=== PATIENT | female | born 1975 | race African-American/Black ===

== ENCOUNTER 2021-07-20 20:48 | Inpatient (IN) ==
[2021-07-20] MEDS ORDERED: Isovue-370 500 ML BOTTLE IVP ONE (21:33)
[2021-07-20 21:51] LABS: Basophils # 0.1 K/mcL (0.0-0.2); Basophils % 0.5 %; Eosinophils # 0.7 K/mcL (0.0-0.6); Eosinophils % 3.9 %; Hematocrit 38.7 % (35.3-44.9); Hemoglobin 12.6 g/dL (11.5-15.4); Lymphocytes # 2.5 K/mcL (0.6-4.6); Lymphocytes % 13.6 %; Mean Corpuscular HGB Conc 32.6 g/dL (31.6-35.5); Mean Corpuscular Hemoglobin 28.4 pg (28.0-33.3); Mean Corpuscular Volume 87.2 fL (83.0-100.0); Mean Platelet Volume 9.8 fL (9.4-12.4); Monocytes # 1.5 K/mcL (0.0-1.3); Neutrophils # 13.4 K/mcL (1.6-8.9); Platelet Count 341 K/mcL (140-400); Red Blood Count 4.44 M/mcL (3.82-4.97); Red Cell Distribution Width 13.3 % (11.5-14.5); White Blood Count 18.4 K/mcL (4.3-11.1)
[2021-07-20] MEDS ORDERED: Vancomycin 2,000 MG/520 ML IV.SOLN IVPB ONE (22:06)
[2021-07-20] MEDS ORDERED: Clindamycin 600 MG/50 ML 600 MG/50 ML IV.SOLN IVPB STA (22:07)
[2021-07-20] MEDS ORDERED: Piperacillin/Tazobactam 3.375 GM in 0.9 % Sodium Chloride Mini Bag 100 ML IVPB ONE (22:07)
[2021-07-20 22:22] LABS: INR 1.4; Prothrombin Time 15.8 Seconds (9.4-12.1)
[2021-07-20 22:25] LABS: Activated Partial Thrombo Time 31.7 Seconds (26.0-36.0)
[2021-07-20 22:29] LABS: BUN/Creatinine Ratio 15 (6-26); Blood Urea Nitrogen 10 mg/dL (6-20); Calcium 8.8 mg/dL (8.6-10.3); Carbon Dioxide 28 mEq/L (23-29); Chloride 102 mEq/L (98-107); Glucose 149 mg/dL (70-105); Osmolality,Calculated 286 (280-300); Potassium 3.5 mEq/L (3.5-5.1); Sodium 137 mEq/L (136-145); eGFR For African Americans > 60 (> 60); eGFR For Non-African Americans > 60 (> 60)
[2021-07-20] MEDS ORDERED: *HR* HYDROmorphone (PF) 1 MG/ML SYRINGE IVP ONE (22:32)
[2021-07-20 22:33] LABS: Alanine Aminotransferase 7 Units/L (7-52); Albumin 3.1 g/dL (3.5-5.7); Albumin/Globulin Ratio 0.8 (1.1-2.2); Alkaline Phosphatase 67 Units/L (34-104); Aspartate Amino Transferase 8 Units/L (13-39); Bilirubin,Direct 0.1 mg/dL (0.0-0.2); Bilirubin,Indirect 0.5 mg/dL (0.0-1.0); Bilirubin,Total 0.6 mg/dL (0.3-1.0); Globulin 3.8 g/dL (2.4-3.5); Total Protein 6.9 g/dL (6.4-8.9)
[2021-07-20] MEDS ORDERED: Acetaminophen IV 1,000 MG/100 ML BAG IVPB ONE (23:59)
[2021-07-20] MEDS ORDERED: Famotidine 20 MG/2 ML VIAL IVP ONE (23:59)
[2021-07-21] MEDS ORDERED: *HR* HYDROmorphone (PF) 1 MG/ML SYRINGE IVP ONE (00:02)
[2021-07-21] MEDS ORDERED: *HR* FentaNYL (PF) 100 MCG/2 ML VIAL ONE (00:03)
[2021-07-21] MEDS ORDERED: *HR* Propofol 200 MG/20 ML VIAL IVP ONE (00:04)
[2021-07-21] MEDS ORDERED: *HR* Midazolam HCl 2 MG/2 ML VIAL ONE (00:04)
[2021-07-21] MEDS ORDERED: *HR* Succinylcholine 200 MG/10 ML VIAL IVP ONE (00:05)
[2021-07-21] MEDS ORDERED: Ondansetron 4 MG/2 ML VIAL ONE (00:05)
[2021-07-21] MEDS ORDERED: Lidocaine -MPF 2% 2 ML VIAL ONE (00:05)
[2021-07-21] MEDS ORDERED: *HR* Rocuronium Bromide 50 MG/5 ML VIAL ONE (00:05)
[2021-07-21] MEDS ORDERED: Lidocaine -MPF 4% 5 ML AMPUL ONE (00:06)
[2021-07-21] MEDS ORDERED: Acetaminophen IV 1,000 MG/100 ML BAG IVPB ONE ×2 (00:06→02:22)
[2021-07-21] MEDS ORDERED: Famotidine 20 MG/2 ML VIAL ONE (00:06)
[2021-07-21] MEDS ORDERED: Albuterol 2.5 MG/3 ML NEBULIZER IH ONE (00:50)
[2021-07-21] MEDS ORDERED: Albuterol 2.5 MG/3 ML NEBULIZER ONE (00:55)
[2021-07-21] MEDS ORDERED: Naloxone 0.4 MG/ML INJ IVP PRN ×2 (00:56→02:22)
[2021-07-21] MEDS ORDERED: Ondansetron ODT 4 MG TAB.RAPDIS SL ONE ×2 (01:35→02:22)
[2021-07-21] MEDS ORDERED: Ibuprofen 800 MG TABLET PO PRN (01:35)
[2021-07-21] MEDS ORDERED: *HR* OxyCODONE/APAP 5/325 TABLET PO PRN (01:35)
[2021-07-21] MEDS ORDERED: Ketorolac 30 MG/ML VIAL ONE (01:39)
[2021-07-21] MEDS ORDERED: *HR* HYDROmorphone PF 0.5 MG/0.5 ML SYRINGE IVP PRN (01:58)
[2021-07-21] MEDS ORDERED: Ondansetron 4 MG/2 ML VIAL IVP PRN (01:58)
[2021-07-21] MEDS: Clindamycin 600 MG/50 ML 600 MG/50 ML IV.SOLN IVPB SCH ×3 (05:46→22:06)
[2021-07-21] MEDS: *HR* Heparin 5,000 UNIT/ML VIAL SQ SCH ×3 (05:46→22:10)
[2021-07-21] MEDS: Ibuprofen 800 MG TABLET PO PRN (05:47)
[2021-07-21] MEDS ORDERED: *HR* Heparin 5,000 UNIT/ML VIAL SQ SCH (06:00)
[2021-07-21] MEDS ORDERED: Clindamycin 600 MG/50 ML 600 MG/50 ML IV.SOLN IVPB SCH (06:00)
[2021-07-21 06:06] LABS: Basophils % 0.4 %; Eosinophils % 0.8 %; Hematocrit 38.5 % (35.3-44.9); Hemoglobin 12.6 g/dL (11.5-15.4); Immature Granulocytes % 1.1 % (0-4); Lymphocytes # 1.1 K/mcL (0.6-4.6); Lymphocytes % 5.7 %; Mean Corpuscular HGB Conc 32.7 g/dL (31.6-35.5); Mean Corpuscular Hemoglobin 28.1 pg (28.0-33.3); Mean Corpuscular Volume 85.7 fL (83.0-100.0); Mean Platelet Volume 10.3 fL (9.4-12.4); Monocytes % 4.2 %; Platelet Count 355 K/mcL (140-400); Red Blood Count 4.49 M/mcL (3.82-4.97); Red Cell Distribution Width 13.3 % (11.5-14.5); Segmented Neutrophils % 87.8 %; White Blood Count 19.3 K/mcL (4.3-11.1)
[2021-07-21 06:07] LABS: Basophils # 0.1 K/mcL (0.0-0.2); Eosinophils # 0.2 K/mcL (0.0-0.6); Monocytes # 0.8 K/mcL (0.0-1.3)
[2021-07-21 06:26] LABS: BUN/Creatinine Ratio 19 (6-26); Blood Urea Nitrogen 13 mg/dL (6-20); Calcium 8.8 mg/dL (8.6-10.3); Carbon Dioxide 22 mEq/L (23-29); Chloride 103 mEq/L (98-107); Glucose 192 mg/dL (70-105); Osmolality,Calculated 283 (280-300); Potassium 3.6 mEq/L (3.5-5.1); Sodium 134 mEq/L (136-145); eGFR For African Americans > 60 (> 60); eGFR For Non-African Americans > 60 (> 60)
[2021-07-21] MEDS ORDERED: Piperacillin/Tazobactam 3.375 GM in 0.9 % Sodium Chloride Mini Bag 100 ML IVPB SCH (08:00)
[2021-07-21] MEDS: Piperacillin/Tazobactam 3.375 GM in 0.9 % Sodium Chloride Mini Bag 100 ML IVPB SCH ×2 (09:25→17:20)
[2021-07-21] MEDS: *HR* OxyCODONE/APAP 5/325 TABLET PO PRN ×2 (09:28→15:28)
[2021-07-21] MEDS ORDERED: Vancomycin 2,000 MG/520 ML IV.SOLN IVPB SCH ×2 (11:00)
[2021-07-21] MEDS: Vancomycin 1,500 MG/265 ML IV.SOLN IVPB SCH (13:26)
[2021-07-21 13:30] LABS: Estimated Average Glucose 128 mg/dl; Hemoglobin A1C 6.1 %
[2021-07-22] MEDS: *HR* OxyCODONE/APAP 5/325 TABLET PO PRN ×3 (00:51→19:55)
[2021-07-22] MEDS: Vancomycin 1,500 MG/265 ML IV.SOLN IVPB SCH (00:54)
[2021-07-22] MEDS: Piperacillin/Tazobactam 3.375 GM in 0.9 % Sodium Chloride Mini Bag 100 ML IVPB SCH ×3 (00:55→15:46)
[2021-07-22] MEDS: *HR* Heparin 5,000 UNIT/ML VIAL SQ SCH ×3 (06:04→23:02)
[2021-07-22] MEDS: Clindamycin 600 MG/50 ML 600 MG/50 ML IV.SOLN IVPB SCH ×3 (06:05→22:57)
[2021-07-22 06:12] LABS: Basophils # 0.1 K/mcL (0.0-0.2); Basophils % 0.2 %; Eosinophils # 0.2 K/mcL (0.0-0.6); Eosinophils % 0.8 %; Hematocrit 34.5 % (35.3-44.9); Immature Granulocytes % 0.9 % (0-4); Lymphocytes # 3.1 K/mcL (0.6-4.6); Lymphocytes % 14.9 %; Mean Corpuscular HGB Conc 31.6 g/dL (31.6-35.5); Mean Corpuscular Hemoglobin 27.7 pg (28.0-33.3); Mean Corpuscular Volume 87.8 fL (83.0-100.0); Monocytes # 1.9 K/mcL (0.0-1.3); Monocytes % 8.9 %; Neutrophils # 15.4 K/mcL (1.6-8.9); Platelet Count 369 K/mcL (140-400); Red Blood Count 3.93 M/mcL (3.82-4.97); Red Cell Distribution Width 13.5 % (11.5-14.5); Segmented Neutrophils % 74.3 %; White Blood Count 20.8 K/mcL (4.3-11.1)
[2021-07-22 06:13] LABS: Hemoglobin 10.9 g/dL (11.5-15.4)
[2021-07-22 06:30] LABS: BUN/Creatinine Ratio 24 (6-26); Blood Urea Nitrogen 16 mg/dL (6-20); Calcium 8.8 mg/dL (8.6-10.3); Carbon Dioxide 29 mEq/L (23-29); Chloride 105 mEq/L (98-107); Glucose 121 mg/dL (70-105); Magnesium 1.9 mg/dL (1.6-2.6); Osmolality,Calculated 290 (280-300); Phosphorous 3.7 mg/dL (2.7-4.5); Potassium 3.6 mEq/L (3.5-5.1); Sodium 139 mEq/L (136-145); eGFR For African Americans > 60 (> 60); eGFR For Non-African Americans > 60 (> 60)
[2021-07-22] MEDS: Vancomycin 2,000 MG/520 ML IV.SOLN IVPB SCH (14:48)
[2021-07-23] MEDS: Vancomycin 2,000 MG/520 ML IV.SOLN IVPB SCH ×2 (01:13→14:19)
[2021-07-23] MEDS: Piperacillin/Tazobactam 3.375 GM in 0.9 % Sodium Chloride Mini Bag 100 ML IVPB SCH ×4 (01:13→23:09)
[2021-07-23 01:55] LABS: BUN/Creatinine Ratio 32 (6-26); Blood Urea Nitrogen 19 mg/dL (6-20); Calcium 8.6 mg/dL (8.6-10.3); Carbon Dioxide 22 mEq/L (23-29); Chloride 106 mEq/L (98-107); Glucose 148 mg/dL (70-105); Magnesium 1.7 mg/dL (1.6-2.6); Osmolality,Calculated 289 (280-300); Phosphorous 3.6 mg/dL (2.7-4.5); Potassium 3.9 mEq/L (3.5-5.1); Sodium 137 mEq/L (136-145); eGFR For African Americans > 60 (> 60); eGFR For Non-African Americans > 60 (> 60)
[2021-07-23] MEDS ORDERED: Melatonin 3 MG TABLET PO PRN (01:59)
[2021-07-23] MEDS: Ibuprofen 800 MG TABLET PO PRN (04:53)
[2021-07-23] MEDS: *HR* Heparin 5,000 UNIT/ML VIAL SQ SCH ×3 (05:28→23:01)
[2021-07-23] MEDS: Clindamycin 600 MG/50 ML 600 MG/50 ML IV.SOLN IVPB SCH (05:28)
[2021-07-23 08:41] LABS: Basophils # 0.1 K/mcL (0.0-0.2); Basophils % 0.7 %; Eosinophils # 0.6 K/mcL (0.0-0.6); Eosinophils % 4.2 %; Hematocrit 34.3 % (35.3-44.9); Hemoglobin 11.2 g/dL (11.5-15.4); Immature Granulocytes % 0.7 % (0-4); Lymphocytes # 4.5 K/mcL (0.6-4.6); Lymphocytes % 30.4 %; Mean Corpuscular HGB Conc 32.7 g/dL (31.6-35.5); Mean Corpuscular Hemoglobin 28.9 pg (28.0-33.3); Mean Corpuscular Volume 88.4 fL (83.0-100.0); Mean Platelet Volume 9.9 fL (9.4-12.4); Monocytes # 1.6 K/mcL (0.0-1.3); Monocytes % 10.4 %; Platelet Count 386 K/mcL (140-400); Red Blood Count 3.88 M/mcL (3.82-4.97); Red Cell Distribution Width 13.6 % (11.5-14.5); Segmented Neutrophils % 53.6 %; White Blood Count 14.9 K/mcL (4.3-11.1)
[2021-07-23] MEDS: Vancomycin 1,500 MG/265 ML IV.SOLN IVPB SCH (08:42)
[2021-07-23] MEDS: *HR* OxyCODONE/APAP 5/325 TABLET PO PRN ×2 (10:05→23:27)
[2021-07-24 01:26] LABS: Basophils # 0.1 K/mcL (0.0-0.2); Basophils % 0.6 %; Eosinophils # 0.7 K/mcL (0.0-0.6); Eosinophils % 4.7 %; Hematocrit 36.5 % (35.3-44.9); Hemoglobin 11.6 g/dL (11.5-15.4); Lymphocytes # 3.5 K/mcL (0.6-4.6); Lymphocytes % 24.7 %; Mean Corpuscular HGB Conc 31.8 g/dL (31.6-35.5); Mean Corpuscular Hemoglobin 27.8 pg (28.0-33.3); Mean Corpuscular Volume 87.5 fL (83.0-100.0); Mean Platelet Volume 9.6 fL (9.4-12.4); Monocytes # 1.1 K/mcL (0.0-1.3); Monocytes % 7.9 %; Neutrophils # 8.7 K/mcL (1.6-8.9); Platelet Count 404 K/mcL (140-400); Red Blood Count 4.17 M/mcL (3.82-4.97); Red Cell Distribution Width 13.7 % (11.5-14.5); Segmented Neutrophils % 61.1 %; White Blood Count 14.3 K/mcL (4.3-11.1)
[2021-07-24 01:44] LABS: BUN/Creatinine Ratio 26 (6-26); Blood Urea Nitrogen 16 mg/dL (6-20); Calcium 8.5 mg/dL (8.6-10.3); Carbon Dioxide 24 mEq/L (23-29); Chloride 106 mEq/L (98-107); Glucose 141 mg/dL (70-105); Magnesium 1.7 mg/dL (1.6-2.6); Osmolality,Calculated 290 (280-300); Phosphorous 3.6 mg/dL (2.7-4.5); Potassium 3.8 mEq/L (3.5-5.1); Sodium 138 mEq/L (136-145); eGFR For African Americans > 60 (> 60); eGFR For Non-African Americans > 60 (> 60)
[2021-07-24] MEDS: Vancomycin 2,000 MG/520 ML IV.SOLN IVPB SCH (01:59)
[2021-07-24] MEDS ORDERED: Vancomycin 1,500 MG/265 ML IV.SOLN IVPB SCH (02:00)
[2021-07-24] MEDS: *HR* Heparin 5,000 UNIT/ML VIAL SQ SCH (05:44)
[2021-07-24 06:37] VITALS: BP 113/79; PULSE 78; TEMP 98.2; O2SAT 97
[2021-07-24] MEDS: *HR* OxyCODONE/APAP 5/325 TABLET PO PRN (07:39)
[2021-07-24] MEDS ORDERED: Cholecalciferol (D-3) 1,000 UNIT (25MCG) TABLET PO SCH (09:00)
[2021-07-24] MEDS ORDERED: Sulfamethoxazole/Trimeth DS 1 EACH TABLET PO SCH (09:00)
== END 2021-07-24 09:57 | disposition home or self-care (01) | DRG 720 ==
LOC: EMEROOARM 20:48 → 3ANU 20:48 → SUATTDRO 07-21 00:01 → 3ANU 07-21 00:49
PROVIDERS: ADMIT Family Medicine; ATTEND Internal Medicine